=== PATIENT | male | born 1960 | race Caucasian/White ===

== ENCOUNTER → 2017-08-19 | Outpatient (CLI) | payer OTHER ==
--- NOTE | 2017-08-19 08:54 | DIAGNOSTIC IMAGING REPORT ---
AP STANDING VIEW OF BOTH KNEES; 3 VIEWS RIGHT KNEE CLINICAL HISTORY: Right knee pain. FINDINGS: An AP standing view of both knees with lateral, tunnel, and sunrise views of the right knee are obtained. No prior studies are available for comparison at the time of dictation. The skeletal structures are well mineralized. No fracture is seen. There is mild to moderate degenerative narrowing in the medial and patellofemoral compartments. There are tiny patellar enthesophytes as well as small marginal osteophytes. A calcified fabella is incidentally noted. No osteochondral defect is suggested on the tunnel view. There is no joint effusion. The overlying soft tissues are within normal limits. There is mild atherosclerotic calcification noted in the popliteal artery. Survey images of the left knee on the frontal view show no significant abnormality. IMPRESSION: Mild arthritic change as above. No acute bony abnormality is seen in the right knee. Electronically signed by: Je Beckman M.D. 08/19/2017 8:53 AM Dictated Date/Time: 08/19/2017 8:51 AM
== END | disposition home or self-care (01) ==
LOC: C.RDSM 08:35
PROVIDERS: ATTEND Physician Assistant
DX: M25.569 Pain in unspecified knee (principal)